=== PATIENT | male | born 1975 | race Caucasian/White ===

== ENCOUNTER 2023-12-15 08:40 | Outpatient (AMB) | payer OTHER, SELFPAY ==
--- NOTE | 2023-12-15 08:45 | AM.OFFWIN_ITS ---
Intake Vital Signs 12/15/23 09:13 Height 5 ft 9 in Weight 156 lb BMI 23.0 BP 160/100 H Blood Pressure Location Lt brachial Position Sitting Pulse 65 Pulse Source Pulse Oximeter Temp 97.0 F Temp Source Temporal Artery Scan Pulse Oximetry (%) 99 Oxygen Delivery Method Room Air Intake Visit Reasons: EST/right side back pain (lobby) Intake Note: pt is here today for rt side back pain started today Patient Tobacco Use Status: Current everyday Tobacco user Allergies amoxicillin [AMOXICILLIN] Allergy (Unknown, Verified 12/15/23 09:15) RASH Do you need a note to return to daycare/school/sports/work: No HPI HPI Comments History of Present Illness Details This is a 47-year-old male with no stated past medical or surgical history presenting for acute onset right sided flank pain that started acutely at 7:30 a.m. this morning when leaving his house. Patient reports diaphoresis, nausea and increasing throbbing right-sided back and flank pain. Patient has never experienced pain like this before and has not taken any medication for treatment of his symptoms. Patient brought his 10-year-old school and drove to urgent care immediately.. Patient denies having any fevers, chills, vomiting, dysuria, chest pain, cough, testicular pain, hematuria or anuria. Patient s tates that he felt well upon waking this morning. [facility] Social History Patient Tobacco Use Status: Current everyday Tobacco user Review of Systems Const All systems reviewed & are unremarkable except as noted in HPI and below Denies body aches, Denies chills and Denies fever(s) Card Reports no additional complaints and Denies chest pain Resp Reports no additional complaints GI Reports nausea and Denies vomiting Denies hematuria, Denies oliguria and Denies difficulty urinating Musc Reports no additional complaints Psych Reports no additional complaints Physical Exam Vital Signs: Last Vital Signs Temp 97.0 F 12/15/23 09:13 Pulse 65 12/15/23 09:13 BP 160/100 H 12/15/23 09:13 Pulse Ox 99 12/15/23 09:13 Oxygen Delivery Method Room Air 12/15/23 09:13 BMI result Body Mass Index 23.0 Patient is afebrile and hypertensive. Const General: alert, awake, in distress moderate, anxious and ill appearing acutely Nutritional Appearance: average body habitus Orientation/consciousness: patient oriented x3 Limitations: no limitations Resp Effort & Inspection: normal respiratory effort Auscultation: clear to auscultation bilaterally Cardio Rate: regular rate Rhythm: regular rhythm GI Inspection: Yes normal to inspection Palpation (GI): Soft to palpation and nontender Auscultation: normal bowel sounds General: No Bimanual renal exam normal bilaterally, Yes bladder normal to inspection, Yes Bimanual renal exam abnormal and Yes CVA tenderness on the right Back/Spine/Pelvis Back: CVA tenderness Thoracic/Lumbar Spine: thoracic and lumbar spine normal to inspection, No thoracic spinal tenderness and No lumbar spinal tenderness Neuro General: patient oriented x3 Psych Appearance: grossly normal Mental Status: mental status grossly normal Insight: Good insight present (Psych) Judgement: Good judgement present (Psych) Assessment & Plan Assessment & Plan (1) Acute right flank pain: Comment: Patient is grossly uncomfortable upon evaluation. Patient is given Zofran ODT and 30 mg of Toradol. I have offered to call an ambulance for transport to the emergency department however the patient is declining and will transport himself to [facility] directly. Case is discussed with castro Zamora RN at [facility]. Suspect acute right renal calculi. Code(s): R10.9 - Unspecified abdominal pain Plan: Patient will drive himself directly to [facility] for further evaluation, management and care. Orders: Orders AMB Ondansetron Adult Dose Today R10.9 - Unspecified abdominal pain AMB Ketorolac Injection Today R10.9 - Unspecified abdominal pain Medications: New ondansetron 4 mg translingual ONCE 1 tab 0RF R10.9 - Unspecified abdominal pain ketorolac 30 mg IM ONCE 1 mL 0RF R10.9 - Unspecified abdominal pain Coding Level of Care Code New Pt Level 4 (53969) Diagnoses Acute right flank pain R10.9 Time Spent (min) 25
[2023-12-15 09:13] VITALS: BP 160/100; PULSE 65; TEMP 36.1; O2SAT 99; BMI 23.0
== END 2023-12-15 09:37 | disposition home or self-care (01) ==
PROVIDERS: PCP Internal Medicine; Visit Provider Physician Assistant
DX: R10.9 Unspecified abdominal pain (principal)
CPT/HCPCS: 99204

== ENCOUNTER 2023-12-15 09:50 | Emergency (ER) | payer OTHER, SELFPAY ==
--- NOTE | ~2023-12-15 | CT_ITS ---
EXAMINATION: CT ABDOMEN AND PELVIS WITHOUT CONTRAST CLINICAL INFORMATION: Flank pain, bloating urine. COMPARISON: None available. TECHNIQUE: Multidetector volumetric imaging was performed from the superior aspect of the liver through the pubic symphysis. Sagittal and coronal reformatted images were obtained on the technologist's workstation. This CT examination was performed using dose optimization techniques as appropriate, variously including the following: *Automated exposure control *Adjustment of mA and/or kV according to patient size (this includes techniques or standardized protocols for targeted exams where dose is matched to indication/reason for exam; i.e. extremities or head) *Use of iterative reconstruction technique DLP: 415 mGy-cm FINDINGS: The lack of intravenous contrast limits evaluation of the solid visceral organs including the liver, spleen, pancreas, and kidneys. LUNG BASES: No focal consolidation or pleural effusion. A few up to 4 mm pulmonary nodules are seen, for instance in the left lower lobe image 63 series 4. LIVER, GALLBLADDER, AND BILIARY TREE: The liver is normal in size, shape, and attenuation. No focal hepatic lesion or biliary ductal dilatation is present. The gallbladder is unremarkable with no evidence of radiopaque gallstones, gallbladder wall thickening, or obvious pericholecystic inflammatory changes. PANCREAS: Unremarkable. SPLEEN: Unremarkable. ADRENAL GLANDS: Unremarkable. KIDNEYS AND URETERS: Trace right hydroureteronephrosis. Punctate nonobstructive calculus in the lower left kidney. No perinephric fat stranding. BLADDER: Suboptimally evaluation due to underdistention. Small approximately 2 mm calculus adjacent to the right ureterovesical junction in the posterior bladder (3:69). No significant perivesical fat stranding. GASTROINTESTINAL TRACT: PS stomach and the small bowel are nondilated. Normal appendix. Colonic diverticulosis without significant pericolonic inflammatory changes. No evidence of bowel obstruction. ABDOMINAL WALL: No significant hernia is appreciated. LYMPH NODES: No lymphadenopathy. Nonspecific mild fatty haziness of the central mesentery. VASCULAR: Atherosclerotic disease. Normal caliber of the abdominal aorta. PELVIC VISCERA: Enlarged prostate. OSSEOUS STRUCTURES: Nonaggressive appearing sclerotic foci in the right pelvis and right femur favoring to represent bone islands. No acute osseous finding. CT/CT abdomen pelvis wo IV con IMPRESSION: 1. Trace right hydroureteronephrosis with a 2 mm calculus adjacent to the right ureterovesical junction in the posterior bladder possibly representing a recently passed stone. 2. Punctate nonobstructive calculus in the lower left kidney. 3. Mild mesenteric fatty haziness which is nonspecific but that could be seen with mesenteric panniculitis. 4. Colonic diverticulosis but no evidence of acute diverticulitis. 5. Enlarged prostate. 6. Few up to 4 mm pulmonary nodules in the visualized lung bases. According to the UPDATED 2017 Fleischner Society recommendations, the advised follow-up imaging for multiple solid nodules measuring up to 6-8 mm is follow-up CT at 3 to 6 months.
[2023-12-15 09:54] VITALS: BP 172/90; PULSE 58; RESP 16; TEMP 37; O2SAT 98; BMI 23.6
--- NOTE | 2023-12-15 10:10 | PC.NURSE ---
a&ox4. vss and up to date. pt sent over from urgent care d/t right sided flank pain and nausea. pt given toradol and zofran at urgent care w/ effectiveness. pt verbalizes pain prior to medication administration was a 10/10 now he rates it at a 2/10. 20gIV placed in the left AC - labs obtained/sent to lab. UA obtained/sent to lab. no sob/wob noted. respirations even and unlabored. pt waiting to be seen by ED provider. plan of care ongoing.
[2023-12-15 10:11] LABS: Appearance Urine Cloudy; Color Urine Dark Yellow; Glucose Urine UA Negative (Negative); Leukocyte Esterase Urine Negative (Negative); Nitrite Urine Negative (Negative); Specific Gravity - Urine >= 1.030 (1.005-1.025); UMIC TRIGGER UACC YES; Urine Blood Large (3+) (Negative); Urine Ketones Trace mg/dL (Negative); Urine Protein 30 (1+) mg/dL (Neg-Trace)
[2023-12-15 10:13] LABS: Baso%MD 0.7 %; Eos%MD 1.2 %; Hematocrit 51.4 % (42.0-52.0); Hemoglobin 17.6 g/dl (14.0-18.0); IG%MD 0.4 %; Lymph%MD 10.9 %; Mean Corpuscular HGB Conc 34.2 g/dl (31.0-36.0); Mean Corpuscular Hemoglobin 29.5 pg (27.0-33.0); Mean Corpuscular Volume 86.1 fL (80.0-98.0); Mean Platelet Volume 8.4 fL (9.4-12.4); Mono%MD 5.1 %; Neut%MD 81.7 %; Platelet Count 299 X10*3/uL (160-400); Red Blood Count 5.97 X10*6/uL (4.60-5.80); Red Cell Distribution Width 13.3 % (11.0-16.0); White Blood Count 11.3 X10*3/uL (4.8-10.8)
[2023-12-15 10:14] LABS: Bacteria Urine None Seen (None Seen); Hyaline Casts Urine 0-2 /LPF (0-2); RBC Urine >20 /HPF (0-2); Squamous Epithelial Cell Urine 0-2 /HPF (0-2); WBC Urine 0-5 /HPF (0-5)
--- NOTE | 2023-12-15 10:45 | ED.MALEGU ---
HPI - Male Genitourinary General Chief complaint: Urogenital-Male Stated complaint: back pain r side Time Seen by Provider: 12/15/23 10:43 Source: patient Mode of arrival: ambulatory Limitations: no limitations History of Present Illness HPI Narrative: 47-year-old male otherwise healthy went to urgent Care for flank pain was sent here for concern for a kidney stone patient denies any history of kidney stones denies any falls or injuries denies chest pain cough Zofran at the urgent care he would already has a CBC and a urine urine does not look infected he does have red blood cells Related Data Home Medications ?Medication ?Instructions ?Recorded ?Confirmed No Known Home Meds 12/15/23 12/15/23 Allergies Allergy/AdvReac Type Severity Reaction Status Date / Time amoxicillin [AMOXICILLIN] Allergy Unknown RASH Verified 12/15/23 09:55 Review of Systems Review of Systems: Review of systems: General: Patient denies any fever chills recent illness or falls Musculoskeletal: Denies back pain or body aches or other injuries HEENT: denies headache, runny nose, ear pain Respiratory: denies shortness of breath, cough Cardiovascular: no chest pain or palpitations : denies dysuria, frequency does have flank pain Abdomen: no nausea vomiting denies abdominal pain Extremities: no swelling, no pain Skin: no diaphoresis Yes all other systems are reviewed and are negative PMFSH Social History Social History Patient Tobacco Use Status: Current everyday Tobacco user Smoked in Last 30 Days: No Use of substances other than those prescribed or required for medical reasons: No Advance Directives: Yes Advance Directives Information Provided: Yes Advance Directives on File: No Physical Exam Vital Signs: Vital Signs: Last Vital Signs Temp 98.6 F 12/15/23 09:54 Pulse 58 12/15/23 09:54 Resp 16 12/15/23 09:54 BP 172/90 H 12/15/23 09:54 Pulse Ox 98 12/15/23 09:54 O2 Del Method Room Air 12/15/23 09:54 BMI result Body Mass Index 23.6 General: Well-appearing well-nourished in no signs of distress HEENT: Normocephalic atraumatic Neck: No signs of JVD, no masses no tenderness or lymphadenopathy Cardiovascular: Regular rate and rhythm Respiratory: Clear to auscultation bilaterally Abdomen: Soft nontender no masses no CVA tenderness Extremities: Normal pedal pulses no signs of edema Skin: Dry warm no rashes Back: No tenderness full ROM Course Course Course Narrative: Patient's pain well controlled I did give the patient Toradol and morphine I will send patient home with morphine I did explain this can cause constipation and her take ibuprofen every 6 hours for pain control patient is happy with the plan I will send the patient follow-up with urology Medications Administered Discontinued Medications Generic Name Dose Route Start Last Admin Trade Name Saba PRN Reason Stop Dose Admin Ketorolac Tromethamine 15 mg 12/15/23 10:57 12/15/23 11:42 Ketorolac Tromethamine 15 Mg/Ml Vial IVPUSH 12/15/23 10:58 15 mg ONCE ONE Administration Morphine Sulfate 4 mg 12/15/23 10:57 12/15/23 11:40 Morphine Sulfate 4 Mg/Ml Cartridge IVPUSH 12/15/23 10:58 4 mg ONCE ONE Administration Protocol Medical Decision Making Medical Decision Making [facility] Narrative: I do think this is likely a kidney stone send the patient for CT scan patient does not have a UTI I will off antibiotics pain is controlled at this time Differential Diagnosis Differential Diagnoses: The differential diagnosis associated with the presentation includes Kidney stone pyelonephritis dehydration electrolyte abnormality acute surgical abdomen Admission/Observation Consideration of admission/observation: Escalation of care including admission/observation considered Lab Data [facility] Lab Attestation statement: I reviewed the patient's lab results. 12/15/23 10:08 12/15/23 10:08 Labs: Lab Results 12/15/23 12/15/23 Range/Units 10:03 10:08 WBC 11.3 H (4.8-10.8) X10*3/uL RBC 5.97 H (4.60-5.80) X10*6/uL Hgb 17.6 (14.0-18.0) g/dl Hct 51.4 (42.0-52.0) % MCV 86.1 (80.0-98.0) fL MCH 29.5 (27.0-33.0) pg MCHC 34.2 (31.0-36.0) g/dl RDW 13.3 (11.0-16.0) % Plt Count 299 (160-400) X10*3/uL MPV 8.4 L (9.4-12.4) fL Absolute Nucleated RBC 0.000 (0.0-0.012) X10*3/uL Nucleated RBC % (auto) 0.0 (0.0-0.2) /100WBC Neutrophils % (Manual) 80 H (45-73) % Band Neutrophils % 4 (3-5) % Lymphocytes % (Manual) 11 L (20-40) % Monocytes % (Manual) 4 (2-11) % Basophils % (Manual) 1 (0-2) % Abs Neuts (Manual) 9.5 H (2.0-8.3) X10*3/uL Lymphocytes # (Manual) 1.2 (1.2-4.9) X10*3/uL Monocytes # (Manual) 0.5 (0.1-1.2) X10*3/uL Basophils # (Manual) 0.1 (0.0-0.2) X10*3/uL Platelet Estimate NORMAL (NORMAL) Plt Morphology Comment NORMAL RBC Morphology NORMAL Urine Color Dark Yellow Urine Appearance Cloudy Urine pH 6.0 (5.0-9.0) Ur Specific [place] >= 1.030 H (1.005-1.025) Urine Protein 30 (1+) H (Neg-Trace) mg/dL Urine Glucose (UA) Negative (Negative) mg/dL Urine Ketones Trace (Negative) mg/dL Urine Blood Large (3+) H (Negative) Urine Nitrite Negative (Negative) Ur Leukocyte Esterase Negative (Negative) Urine RBC >20 H (0-2) /HPF Urine WBC 0-5 (0-5) /HPF Ur Squamous Epith Cells 0-2 (0-2) /HPF Urine Bacteria None Seen (None Seen) Hyaline Casts 0-2 (0-2) /LPF Independent Interpretation I performed an independent interpretation of an: CT Scan Radiology Impression Discussion of test interpretation with radiology: I have reviewed the radiologist's reading. External Record Review External record reviewed: Inpatient record, Office record and Outpatient record Discharge Plan Discharge Clinical Impression: Flank pain, Kidney stone on left side, Pulmonary nodule Patient Disposition: Home, Self-Care Instructions: Abdominal Pain (ED), Flank Pain (ED), Kidney Stones (ED), Pulmonary Nodules (ED) Additional Instructions: You seen in the emergency department today for abdominal flank pain and found have kidney stones. He did have a CT and labs this showed a 2 mm stone as well as some pulmonary nodules. He needs to follow up with her doctor about pulmonary add as well as Urology for the kidney stones if you have any other concerns please do not hesitate to come back to emergency department Prescriptions: No Action ketorolac 30 mg/mL (1 mL) solution 30 mg IM ONCE Qty: 1 0RF ondansetron 4 mg tablet,disintegrating 4 mg translingual ONCE Qty: 1 0RF No Known Home Meds Print Language: Samoan
[2023-12-15 11:20] LABS: Band Neutrophils Percent 4 % (3-5); Basophils Abs Manual 0.1 X10*3/uL (0.0-0.2); Basophils Percent Manual 1 % (0-2); Lymphocytes Absolute Manual 1.2 X10*3/uL (1.2-4.9); Lymphocytes Percent Manual 11 % (20-40); Monocytes Absolute Manual 0.5 X10*3/uL (0.1-1.2); Monocytes Percent Manual 4 % (2-11); Neutrophils Absolute Manual 9.5 X10*3/uL (2.0-8.3); Neutrophils Percent Manual 80 % (45-73)
[2023-12-15 11:23] LABS: Platelet Estimate NORMAL (NORMAL); Platelet Morphology Comment NORMAL; RBC Morphology NORMAL
[2023-12-15] MEDS: Morphine Sulfate 4 MG/ML CARTRIDGE IVPUSH (11:40)
[2023-12-15] MEDS: Ketorolac Tromethamine 15 MG/ML VIAL IVPUSH (11:42)
--- NOTE | 2023-12-15 11:46 | PC.NURSE ---
pt medicated per provider order. effectiveness pending.
[2023-12-15 12:25] LABS: Alanine Aminotransferase 24 U/L (0-40); Alkaline Phosphatase 71 U/L (39-117); Anion Gap 11 (12-20); Aspartate Amino Transferase 17 U/L (5-37); Bilirubin Total 0.5 mg/dL (0.0-1.0); Blood Urea Nitrogen 11 mg/dL (9-16); Calcium 9.5 mg/dL (8.4-10.2); Carbon Dioxide 25 mmol/L (22-29); Chloride 106 mmol/L (96-108); Creatinine Clr Calc Pharmacy 93.2; Estimated Glomerular Filt Rate > 60; Glucose Random 119 mg/dL (60-115); Potassium 4.1 mmol/L (3.3-5.1); Sodium 138 mmol/L (135-145); Total Protein 6.8 g/dL (6.5-8.0)
--- NOTE | 2023-12-15 12:28 | ED.MALEGU ---
HPI - Male Genitourinary General Chief complaint: Urogenital-Male Stated complaint: back pain r side Time Seen by Provider: 12/15/23 10:43 Source: patient Mode of arrival: ambulatory Limitations: no limitations Related Data Home Medications ?Medication ?Instructions ?Recorded ?Confirmed No Known Home Meds 12/15/23 12/15/23 Allergies Allergy/AdvReac Type Severity Reaction Status Date / Time amoxicillin [AMOXICILLIN] Allergy Unknown RASH Verified 12/15/23 09:55 COUNT INCLUDES THE [facility] Social History Social History Patient Tobacco Use Status: Current everyday Tobacco user Smoked in Last 30 Days: No Use of substances other than those prescribed or required for medical reasons: No Advance Directives: Yes Advance Directives Information Provided: Yes Advance Directives on File: No Physical Exam Vital Signs: Vital Signs: Last Vital Signs Temp 98.6 F 12/15/23 09:54 Pulse 58 12/15/23 09:54 Resp 16 12/15/23 09:54 BP 172/90 H 12/15/23 09:54 Pulse Ox 98 12/15/23 09:54 O2 Del Method Room Air 12/15/23 09:54 BMI result Body Mass Index 23.6 Medications Administered Discontinued Medications Generic Name Dose Route Start Last Admin Trade Name Freq PRN Reason Stop Dose Admin Ketorolac Tromethamine 15 mg 12/15/23 10:57 12/15/23 11:42 Ketorolac Tromethamine 15 Mg/Ml Vial IVPUSH 12/15/23 10:58 15 mg ONCE ONE Administration Morphine Sulfate 4 mg 12/15/23 10:57 12/15/23 11:40 Morphine Sulfate 4 Mg/Ml Cartridge IVPUSH 12/15/23 10:58 4 mg ONCE ONE Administration Protocol Medical Decision Making Lab Data 12/15/23 10:08 12/15/23 12:04 Labs: Lab Results 12/15/23 12/15/23 12/15/23 Range/Units 10:03 10:08 12:04 WBC 11.3 H (4.8-10.8) X10*3/uL RBC 5.97 H (4.60-5.80) X10*6/uL Hgb 17.6 (14.0-18.0) g/dl Hct 51.4 (42.0-52.0) % MCV 86.1 (80.0-98.0) fL MCH 29.5 (27.0-33.0) pg MCHC 34.2 (31.0-36.0) g/dl RDW 13.3 (11.0-16.0) % Plt Count 299 (160-400) X10*3/uL MPV 8.4 L (9.4-12.4) fL Absolute Nucleated RBC 0.000 (0.0-0.012) X10*3/uL Nucleated RBC % (auto) 0.0 (0.0-0.2) /100WBC Neutrophils % (Manual) 80 H (45-73) % Band Neutrophils % 4 (3-5) % Lymphocytes % (Manual) 11 L (20-40) % Monocytes % (Manual) 4 (2-11) % Basophils % (Manual) 1 (0-2) % Abs Neuts (Manual) 9.5 H (2.0-8.3) X10*3/uL Lymphocytes # (Manual) 1.2 (1.2-4.9) X10*3/uL Monocytes # (Manual) 0.5 (0.1-1.2) X10*3/uL Basophils # (Manual) 0.1 (0.0-0.2) X10*3/uL Platelet Estimate NORMAL (NORMAL) Plt Morphology Comment NORMAL RBC Morphology NORMAL Sodium 138 (135-145) mmol/L Potassium 4.1 (3.3-5.1) mmol/L Chloride 106 (96-108) mmol/L Carbon Dioxide 25 (22-29) mmol/L Anion Gap 11 L (12-20) BUN 11 (9-16) mg/dL Creatinine 1.00 (0.5-1.4) mg/dL Estim Creat Clear Calc 93.2 Estimated GFR > 60 Random Glucose 119 H (60-115) mg/dL Calcium 9.5 (8.4-10.2) mg/dL Total Bilirubin 0.5 (0.0-1.0) mg/dL AST 17 (5-37) U/L ALT 24 (0-40) U/L Alkaline Phosphatase 71 (39-117) U/L Total Protein 6.8 (6.5-8.0) g/dL Albumin 4.0 (3.5-5.0) g/dL Urine Color Dark Yellow Urine Appearance Cloudy Urine pH 6.0 (5.0-9.0) Ur Specific [place] >= 1.030 H (1.005-1.025) Urine Protein 30 (1+) H (Neg-Trace) mg/dL Urine Glucose (UA) Negative (Negative) mg/dL Urine Ketones Trace (Negative) mg/dL Urine Blood Large (3+) H (Negative) Urine Nitrite Negative (Negative) Ur Leukocyte Esterase Negative (Negative) Urine RBC >20 H (0-2) /HPF Urine WBC 0-5 (0-5) /HPF Ur Squamous Epith Cells 0-2 (0-2) /HPF Urine Bacteria None Seen (None Seen) Hyaline Casts 0-2 (0-2) /LPF Discharge Plan Discharge Clinical Impression: Flank pain, Kidney stone on left side, Pulmonary nodule Patient Disposition: Home, Self-Care Instructions: Kidney Stones (ED), Abdominal Pain (ED), Flank Pain (ED), Pulmonary Nodules (ED) Additional Instructions: You seen in the emergency department today for abdominal flank pain and found have kidney stones. He did have a CT and labs this showed a 2 mm stone as well as some pulmonary nodules. He needs to follow up with her doctor about pulmonary add as well as Urology for the kidney stones if you have any other concerns please do not hesitate to come back to emergency department Prescriptions: No Action ketorolac 30 mg/mL (1 mL) solution 30 mg IM ONCE Qty: 1 0RF ondansetron 4 mg tablet,disintegrating 4 mg translingual ONCE Qty: 1 0RF No Known Home Meds Print Language: Khmer
[2023-12-15 12:43] VITALS: BP 172/90; PULSE 58; RESP 16; TEMP 37; O2SAT 98
== END 2023-12-15 12:43 | disposition home or self-care (01) ==
PROVIDERS: Emergency Provider Student in an Organized Health Care Education/Training Program; PCP Internal Medicine
DX: N20.0 Calculus of kidney (principal); R91.1 Solitary pulmonary nodule; R10.9 Unspecified abdominal pain; M54.50 Low back pain, unspecified; R14.0 Abdominal distension (gaseous); F17.200 Nicotine dependence, unspecified, uncomplicated; Z79.899 Other long term (current) drug therapy
CPT/HCPCS: 36415; 74176; 80053; 81001; 85007; 85027; 96374; 96375; 99284; 99285; J1885; J2270